=== PATIENT | female | born 2000 | race Caucasian/White ===

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

== ENCOUNTER 2021-04-20 16:31 | Emergency (ER) | payer OTHER, SELFPAY ==
[2021-04-20 16:40] VITALS: BP 132/72; PULSE 84; RESP 20; TEMP 36.3; O2SAT 100
--- NOTE | 2021-04-20 16:41 | ED.DENTAL ---
HPI - Dental/Oral General Chief complaint: Dental/Oral Stated complaint: tooth pain Source: patient and RN notes reviewed Mode of arrival: ambulatory Limitations: no limitations History of Present Illness HPI Narrative: 20-year-old female presents to the [facility] with complaints of dental pain to the right lower jaw for 2 weeks. Has dental caries. Had tried making an apt with [facility] but is not able to get in. Has taken Motrin with little relief. Teeth map: 1. redness and swelling with tenderness Related Data Allergies Allergy/AdvReac Type Severity Reaction Status Date / Time No Known Allergies Allergy Mild Verified 10/16/19 14:46 Review of Systems Review of Systems: All systems reviewed & are unremarkable except as noted in HPI and below Constitutional: Constitutional: Reports no additional constitutional complaints, Denies chills and Denies fever(s) Eyes: Eyes: Reports no additional eye complaints ENT: Reports as per HPI Comments: right lower dental pain Cardiovascular: Cardiovascular: Reports no additional cardiovascular complaints Respiratory: Respiratory: Reports no additional respiratory complaints Musculoskeletal: Musculoskeletal: Reports no additional musculoskeletal complaints Integumentary/Breasts: Skin/Breast: Reports system reviewed and no additional complaints, except as docu Neurologic: Reports system reviewed and no additional complaints, except as documented Psychiatric: Psychiatric: Reports no additional psychiatric complaints Allergic/Immunologic: Allergic/Immunologic: Reports no additional allergic/immunologic complaints PMFSH Surgical History Surgical History History of tonsillectomy Social History Social History Substance use: never Gender identity (if verbalized by the patient): Female Comments At the time of my signature, I reviewed and agree with the nursing past medical, surgical, social, and family history. There is no relevant family history pertinent to the patient complaint. Exam Const: General: healthy appearing and alert Nutritional Appearance: well nourished and obese Orientation/consciousness: patient oriented x3 Limitations: no limitations HENMT: Head: normal to inspection Ears: hearing grossly normal bilaterally General nose exam: Normal external nose present Face and sinus: normal facial exam, face symmetric, no ecchymosis and no erythema Mouth: Yes Normal oral and palatal mucosa present, Yes lip normal and Yes tongue normal Teeth and gingiva: abnormal tooth and associated gingiva lower right third molar and gingiva abnormal edematous, diffusely erythematous and tender Teeth image: 1. Caries noted 30 [id number], erythema and swelling noted to the gingiva surrounding tissue. Tenderness to palpation. Throat: posterior oropharynx normal Eyes: Conjunctivae: conjunctivae normal Pupils: Equal, round and reactive pupils present Neck: Neck: normal visual inspection, no lymphadenopathy and no meningeal signs Chest: Chest palpation & inspection: normal inspection of the chest Resp: Effort & Inspection: normal respiratory effort Cardio: Rate: regular rate Rhythm: regular rhythm Skin: General skin exam: normal color Rashes: no rashes Neuro: General: patient oriented x3, moves all extremities, no meningeal signs and no focal motor deficits Speech: normal speech Gait exam (Neuro): Normal gait present Extrem: General: normal to inspection Psych: Appearance: grossly normal Mental Status: mental status grossly normal Affect: normal affect Attitude: cooperative Thought content: Yes Normal thought content present Course Course Emergency Course: Discharge instructions reviewed with patient, as well as provided in writing per nursing staff. The instructions also include specific and strict return/GO TO THE ER as well as f/u information. All questions h
== END 2021-04-20 17:01 | disposition home or self-care (01) ==
PROVIDERS: Emergency Provider Nurse Practitioner
DX: K08.89 Other specified disorders of teeth and supporting structures (principal); K02.9 Dental caries, unspecified; K04.7 Periapical abscess without sinus
CPT/HCPCS: 99213; G0463

== ENCOUNTER 2023-05-24 14:34 | Emergency (ER) | payer OTHER, SELFPAY ==
[2023-05-24 14:53] VITALS: BP 133/86; PULSE 95; RESP 18; TEMP 36.6; O2SAT 100
[2023-05-24 14:56] VITALS: BP 133/86; PULSE 95; RESP 18; TEMP 36.6; O2SAT 100
--- NOTE | 2023-05-24 15:07 | ED.URI ---
HPI - URI/Sore Throat General Chief Complaint: Upper Respiratory Infection Stated Complaint: Sinus Source: patient and RN notes reviewed History of Present Illness HPI Narrative: 22-year-old female presents to urgent care with complaints of congestion, cough, sore throat when she coughs, and chest pain when she coughs that radiates to her back. Patient states this all started today. Patient states she felt fine yesterday and was visiting her mom in the hospital. Patient denies any fevers or chills. Patient reports some shortness of breath intermittently. Denies any vomiting or diarrhea. Patient states she took a DayQuil this morning without relief. Related Data Allergies Allergy/AdvReac Type Severity Reaction Status Date / Time No Known Allergies Allergy Mild Verified 05/24/23 14:55 Review of Systems Review of Systems: Pertinent positives and pertinent negatives per HPI. [facility] Surgical History Surgical History History of tonsillectomy Social History Social History Substance use: never Gender identity (if verbalized by the patient): Female Comments At the time of my signature, I reviewed and agree with the nursing past medical, surgical, social, and family history. There is no relevant family history pertinent to the patient complaint. Exam Narrative: GENERAL: This is a well-nourished, well-developed patient, in no apparent distress. HEAD: normocephalic, atraumatic. EYES: Sclera clear/white. Vision is grossly intact. EARS: External ears normal, auditory canals clear and without drainage, TMs normal without perforation. Hearing grossly intact. NOSE: congestion THROAT: Mucous membranes moist, posterior pharynx clear. NECK: Neck supple, non-tender without lymphadenopathy, masses or thyromegaly. CARDIOVASCULAR: Regular rate and rhythm without murmurs, gallops, or rubs. RESPIRATORY: Clear to auscultation. Breath sounds equal bilaterally. No wheezes, rales, or rhonchi. pt has dry cough in exam room. GASTROINTESTINAL: Abdomen soft, non-tender, nondistended. Bowel sounds are active. No hepato-splenomegaly, or palpable masses. No guarding. SKIN: warm, intact with no suspicious lesions or rash, good texture and turgor. NEURO: awake, alert, and oriented to person, place and time. There were no obvious focal neurologic abnormalities. Course Course Level of Care: Express Care Visit Vital Signs Vital signs: Vital Signs Temperature 98 F 05/24/23 14:53 Pulse Rate 95 05/24/23 14:53 Respiratory Rate 18 05/24/23 14:53 Blood Pressure 133/86 05/24/23 14:53 Pulse Oximetry 100 05/24/23 14:53 Oxygen Delivery Room Air 05/24/23 14:53 Temperature 98 F 05/24/23 14:56 Pulse Rate 95 05/24/23 14:56 Respiratory Rate 18 05/24/23 14:56 Blood Pressure 133/86 05/24/23 14:56 Pulse Oximetry 100 05/24/23 14:56 Oxygen Delivery Room Air 05/24/23 14:56 reviewed MDM - URI/Sore Throat MDM Narrative Medical decision making narrative: Take steroids as directed. May use the inhaler every 4-6 hours as needed for coughing. Increase fluids at home. Avoid any and all smoke. May use a humidifier in the bedroom. Increase your Vitamin C. Follow-up with personal physician in 2-5 days. Viral illness may last between 7-12days; antibiotic is NOT recommended at this time. Recommend antihistamine such as Benadryl at night time and Claritin/Zyrtec/Luz during the day. Increase your Vitamin C intake. Steam from hot showers help with congestion. Use inhaler as needed for cough, wheezing, shortness of breath or chest tightness. Also, recommend symptomatic treatment includes: rest, fluids, increase humidity of the air at home with a humidifier in the bedroom. Recommend Acetaminophen or nonsteroidal anti-inflammatory agents(NSAIDs) as directed in the bottle to reduce fever and/pain/headache. A
== END 2023-05-24 15:20 | disposition home or self-care (01) ==
PROVIDERS: Emergency Provider Nurse Practitioner Family
DX: J40 Bronchitis, not specified as acute or chronic (principal); J06.9 Acute upper respiratory infection, unspecified; J45.909 Unspecified asthma, uncomplicated
CPT/HCPCS: 99213; G0463

== ENCOUNTER 2024-05-22 12:50 | Emergency (ER) | payer OTHER, SELFPAY ==
[2024-05-22 13:00] VITALS: BP 137/79; PULSE 89; RESP 20; TEMP 36.7; O2SAT 98
--- NOTE | 2024-05-22 13:08 | ED.URI ---
HPI - URI/Sore Throat General Chief Complaint: Wound/Laceration Stated Complaint: Nose Irritation Time Seen by Provider: 05/22/24 13:13 Source: patient, RN notes reviewed and old records reviewed Mode of arrival: ambulatory Limitations: no limitations History of Present Illness HPI Narrative: Patient presents with complaints of large pustule to left side of her nose. She reports that she got the right side of her nose pierced a couple of days ago,had some bleeding complications during the procedure. She reports yesterday she noticed a red bump to the left side of the tip of her nose, today there is a large pustule. She reports extremely tender to the touch. She is also complaining about some left-sided facial swelling. Reports that she had a dental procedure 2 weeks ago, was taking cephalexin, finished course. Feels as though she is not all the way better from that. She denies all other injury and trauma. Denies fever, chills, sweats. Voices no other concerns or complaints at this time Related Data Allergies Allergy/AdvReac Type Severity Reaction Status Date / Time No Known Allergies Allergy Mild Verified 05/22/24 13:18 Review of Systems Review of Systems: All systems reviewed & are unremarkable except as noted in HPI and below Constitutional: Constitutional: Reports no additional constitutional complaints ENT: Reports system reviewed and no additional complaints, except as documented and Reports as per HPI Cardiovascular: Cardiovascular: Reports as per HPI and Reports no additional cardiovascular complaints Respiratory: Respiratory: Reports as per HPI and Reports no additional respiratory complaints Gastrointestinal: Gastrointestinal: Reports no additional gastrointestinal complaints Integumentary/Breasts: Skin/Breast: Reports system reviewed and no additional complaints, except as docu, Reports as per HPI and Reports new lesions [facility] Surgical History Surgical History History of tonsillectomy Social History Social History Substance use: never Gender identity (if verbalized by the patient): Female Comments At the time of my signature, I reviewed and agree with the nursing past medical, surgical, social, and family history. There is no relevant family history pertinent to the patient complaint. Exam Const: General: cooperative, no acute distress, alert and awake Orientation/consciousness: oriented to person, oriented to place and oriented to time HENMT: Head: normal to inspection Ears: TM's normal bilaterally Face/Nose/Sinus: Other nasal findings present (1 cm diameter pustule to tip of left nose) Nose image: 1. pustule Mouth: Yes moist mucous membranes Teeth and gingiva: fair dentition Throat: posterior oropharynx normal Resp: Effort & Inspection: normal respiratory effort and able to speak in complete sentences Auscultation: clear to auscultation bilaterally, no crackles, no rales, no rhonchi and no wheezes Cardio: Palpation: normal PMI Rate: regular rate Rhythm: regular rhythm Heart sounds: S1 normal heart sound present and S2 normal heart sound present Neuro: General: oriented to person, oriented to place and oriented to time Cranial nerves: Yes CN's II-XII intact bilaterally Psych: Appearance: grossly normal Thought process: Normal thought process present Insight: Good insight present (Psych) Judgement: Good judgement present (Psych) Course Course Level of Care: Express Care Visit Vital Signs Vital signs: Vital Signs Temperature 98.1 F 05/22/24 13:00 Pulse Rate 89 05/22/24 13:00 Respiratory Rate 20 05/22/24 13:00 Blood Pressure 137/79 05/22/24 13:00 Pulse Oximetry 98 05/22/24 13:00 Oxygen Delivery Room Air 05/22/24 13:00 Temperature 98.1 F 05/22/24 13:00 Pulse Rate 89 05/22/24 13:00 Respiratory Rate 20 05/22/24 13:00 Blood Pressur
== END 2024-05-22 13:27 | disposition home or self-care (01) ==
PROVIDERS: Emergency Provider Nurse Practitioner Family
DX: J34.0 Abscess, furuncle and carbuncle of nose (principal)
CPT/HCPCS: 99213; G0463

== ENCOUNTER 2024-06-09 23:01 | Observation (INO) | payer OTHER, SELFPAY ==
[2024-06-09 23:07] VITALS: BP 140/82; PULSE 102; RESP 15; TEMP 36.1; O2SAT 99
[2024-06-10] VITALS (14 sets, daily range): BP systolic 127–153; BP diastolic 62–115; PULSE 80–102; RESP 16–20; TEMP 36.9; O2SAT 96–100; BMI 50.4
--- NOTE | 2024-06-10 01:18 | ED.GENADULT ---
HPI - General Adult General Chief complaint: Syncope Stated complaint: syncopal episodes & falling asleep Time Seen by Provider: 06/10/24 00:52 History of Present Illness HPI narrative: Patient is a 23-year-old female who presents emergency department with chief complaint of pneumonia. Patient reports that she has been having syncopal episodes had several today ended up at [facility]. Patient was found to have pneumonia on a CT angiography of her chest and also was having episodes of desaturation both whenever she was falling asle she has not been feeling well ep and whenever she was talking. Patient reports no prior history of sleep apnea does report that Related Data Allergies Allergy/AdvReac Type Severity Reaction Status Date / Time No Known Allergies Allergy Mild Verified 06/09/24 23:14 Review of Systems Review of Systems: A 10 system review of systems was completed on the patient and is negative except for what is stated in the HPI. Nursing and ancillary documentation was reviewed. [facility] Surgical History Surgical History History of tonsillectomy Social History Social History Substance use: never Gender identity (if verbalized by the patient): Female Exam Narrative: GENERAL: Well-appearing, well-nourished, and in no acute distress. HEAD: Normocephalic, atraumatic. EYES: PERRLA and EOMI. ENT: Nares clear, no rhinorrhea or epistaxis. Mucous membranes moist. NECK: Supple. CHEST: Clear to auscultation. No respiratory distress. HEART: Regular rate and rhythm. No murmur heard. Normal peripheral pulses. ABDOMEN: Soft, nontender, nondistended, normal active bowel sounds. EXTREMITIES: Normal range of motion. No edema. SKIN: Warm, dry, no rash. NEURO: No focal deficits. Alert and oriented x3. PSYCH: Normal mood and affect. Course Vital Signs Vital signs: Vital Signs Temperature 36.1 C L 06/09/24 23:07 Pulse Rate 102 H 06/09/24 23:07 Respiratory Rate 15 06/09/24 23:07 Blood Pressure 140/82 06/09/24 23:07 Pulse Oximetry 99 06/09/24 23:07 Oxygen Delivery Room Air 06/09/24 23:07 Temperature 36.1 C L 06/09/24 23:07 Pulse Rate 95 06/10/24 00:48 Respiratory Rate 18 06/10/24 00:48 Blood Pressure 135/73 06/10/24 00:48 Pulse Oximetry 98 06/10/24 00:48 Oxygen Delivery Room Air 06/09/24 23:07 Medical Decision Making MDM Narrative Medical decision making narrative: Differential diagnosis includes pneumonia, sleep apnea, dysrhythmia The patient's records from [place] were reviewed. Patient will be continued on Rocephin and Zithromax case was discussed with the hospitalist for admission Vital Signs Vital Signs: Vital Signs Temperature 36.1 C L 06/09/24 23:07 Pulse Rate 102 H 06/09/24 23:07 Respiratory Rate 15 06/09/24 23:07 Blood Pressure 140/82 06/09/24 23:07 Pulse Oximetry 99 06/09/24 23:07 Oxygen Delivery Room Air 06/09/24 23:07 Temperature 36.1 C L 06/09/24 23:07 Pulse Rate 95 06/10/24 00:48 Respiratory Rate 18 06/10/24 00:48 Blood Pressure 135/73 06/10/24 00:48 Pulse Oximetry 98 06/10/24 00:48 Oxygen Delivery Room Air 06/09/24 23:07 Discharge Plan Discharge Clinical Impression: Syncope, Pneumonia Patient Disposition: Still a Patient Prescriptions: No Action clindamycin HCl 300 mg capsule 300 mg PO BID Qty: 20 0RF mupirocin 2 % ointment kit 1 applic topical BID 14 Days Qty: 1 0RF Follow-up/Referrals: PHYSICIAN,CHOCOLATE FINISHER OPERATOR [Primary Care Provider] - Time of Disposition: 01:30
[2024-06-10 01:53] LABS: Basophils Absolute Auto 0.1 K/mm3 (0.0-0.1); Basophils Percent Auto 0.9 % (0.2-1.2); Eosinophils Absolute Auto 0.2 K/mm3 (0-0.3); Eosinophils Percent Auto 1.5 % (0-4.4); Hematocrit 44.9 % (37.0-47.0); Hemoglobin 14.6 g/dL (12.0-15.0); Immature Granulocyte Absolute 0.07 K/mm3 (0.00-0.031); Immature Granulocyte Percent A 0.6 % (0-0.5); Lymphocytes Absolute Auto 4.16 K/mm3 (0.9-3.2); Lymphocytes Percent Auto 34.1 % (18.3-44.2); Mean Corpuscular HGB Conc 32.5 g/dl (32-36); Mean Corpuscular Hemoglobin 30.1 pg (26-34); Mean Corpuscular Volume 92.6 fl (80-100); Mean Platelet Volume 10.1 fl (7.4-10.4); Monocytes Absolute Auto 1.2 K/mm3 (0.1-0.6); Monocytes Percent Auto 9.7 % (2.6-8.5); Neutrophils Absolute Auto 6.5 K/mm3 (1.3-6.7); Neutrophils Percent Auto 53.2 % (45.5-73.1); Platelet Count Result 432 k/mm3 (150-375); Red Blood Count 4.85 M/mm3 (4.2-5.4); Red Cell Distribution Width 12.8 % (11.5-14.5); White Blood Count 12.2 K/mm3 (4.5-10.0)
[2024-06-10 02:02] LABS: Alanine Aminotransferase 19 U/L (6-35); Albumin Level 4.1 g/dL (3.5-5.1); Alkaline Phosphatase 49 U/L (38-126); Anion Gap 6 mmol/L (4-12); Aspartate Amino Transferase 24 U/L (14-36); Bilirubin,Total 0.3 mg/dL (0.2-1.3); Blood Urea Nitrogen 13 mg/dL (7-17); Carbon Dioxide 32 mmol/L (22-30); Chloride 102 mmol/L (98-107); Estimated CRCL calculation 137 ml/min; Estimated Glomerular Filt Rate > 60; Glucose 110 mg/dL (65-110); Potassium 3.5 mmol/L (3.4-5.0); Sodium 140 mmol/L (137-145)
[2024-06-10 02:03] LABS: Lactic Acid Reflex 1.1 mmol/L (0.7-2.0)
[2024-06-10 02:28] LABS: Influenza A QL RT-PCR Negative (Negative); Influenza B QL RT-PCR Negative (Negative); RSV RNA, RT-PCR Negative (Negative); SARS-CoV-2 RNA PCR Negative (Negative)
--- NOTE | 2024-06-10 02:29 | PCRCNOTE ---
Pt refused ABG. DR notified
--- NOTE | 2024-06-10 02:40 | PC.NURSE ---
Pt refused ABG. TARIQ Bonner notified. Not further instructions at this time.
--- NOTE | 2024-06-10 03:04 | PM.IMHP ---
H&P: HPI History of Present Illness Date/Time: 06/10/24 03:04 Chief Complaint: Syncope, cough, shortness breath Narrative: 23 years old lady with history of morbid obesity, BMI 44, transferred to ED because of syncope, cough and shortness breath. Patient has been feeling generally weak and just sitting today. Patient's nor in the night. Patient does not use CPAP and does not have sleeping study. Patient pass out when she was having a shower yesterday morning, patient has some lightheadedness before she passed out. Patient denies headache, focal weakness, confusion altered regained consciousness days. Patient has some cough and shortness breath in past few more days. Patient was brought to [facility], per patient's statement patient had syncope when patient was in hospital. EKG shows sinus rhythm, CT head shows no acute intracranial issues, patient found hypoxemia, CT chest showed right lower lobe pneumonia. Patient received at azithromycin ceftriaxone in the ED, and patient was transferred to [facility] for evaluation treatment. Upon arrival in the ED, patient found have tachycardia tachypnea, afebrile, no O2 desaturation on room air. EKG shows sinus rhythm, no specific ST or T-wave changes, flow and COVID negative, patient leukocytosis 12,200 Review of Systems Review of Systems: ROS negative except [facility] Surgical History History of tonsillectomy Social History Social History Substance use: never Gender identity (if verbalized by the patient): Female Meds Home Medications and Allergies Home Medications Medication Instructions Recorded Confirmed Type mupirocin 2 % ointment topical kit 1 applic topical BID 14 days #1 ea 05/22/24 Rx Allergies Allergy/AdvReac Type Severity Reaction Status Date / Time No Known Allergies Allergy Mild Verified 06/09/24 23:14 Vital Signs Vital Signs - 24 hr 06/09/24 23:07 06/10/24 00:48 06/10/24 00:48 Temperature 97.0 F L Pulse Rate 102 H 95 95 Respiratory Rate 15 18 Blood Pressure 140/82 135/73 Pulse Oximetry 99 98 Oxygen Delivery Room Air 06/10/24 01:55 Temperature Pulse Rate 95 Respiratory Rate 20 Blood Pressure 137/70 Pulse Oximetry 96 Oxygen Delivery Exam Narrative: GENERAL: Pleasant, in no acute distress. Morbid obesity - EYES: EOMI. Anicteric. - HENT: Moist mucous membranes. - LUNGS: Clear to auscultation bilaterally, no wheezing, rhonchi, or rales. - CARDIOVASCULAR: Regular rate and rhythm. No murmur. No JVD. - ABDOMEN: Soft, non-tender and non-distended. No palpable masses. - EXTREMITIES: No edema. Peripheral pulses 2+. Non-tender. - NEUROLOGIC: No focal neurological deficits. CN II-XII grossly intact. - PSYCHIATRIC: Awake, Alert and oriented x 3. Appropriate mood and affect. - SKIN: No rashes or lesions. Warm. - LYMPH: No cervical lymphadenopathy. H&P: Results Labs Labs: Short CBC 06/10/24 Range/Units 01:44 WBC 12.2 H (4.5-10.0) K/mm3 Hgb 14.6 (12.0-15.0) g/dL Hct 44.9 (37.0-47.0) % Plt Count 432 H (150-375) k/mm3 BMP 06/10/24 01:44 Sodium 140 Potassium 3.5 Chloride 102 Carbon Dioxide 32 H BUN 13 Creatinine 0.80 Glucose 110 Calcium 9.0 Liver Function 06/10/24 Range/Units 01:44 Total Bilirubin 0.3 (0.2-1.3) mg/dL AST 24 (14-36) U/L ALT 19 (6-35) U/L Alkaline Phosphatase 49 (38-126) U/L Albumin 4.1 (3.5-5.1) g/dL Assessment and Plan Assessment and plan (1) Syncope: Code(s): R55 - Syncope and collapse Status: Acute (2) Pneumonia: Code(s): J18.9 - Pneumonia, unspecified organism Status: Acute (3) Sepsis: Code(s): A41.9 - Sepsis, unspecified organism Status: Acute (4) Morbid obesity: Code(s): E66.01 - Morbid (severe) obesity due t
--- NOTE | 2024-06-10 03:16 | ECHO_ITS ---
Patient Info Name: Bria Good Age: 23 years : 2000 Gender: Female HR: 95 bpm BP: 137 / 70 mmHg Technical Quality: Fair Exam Date: 06/10/2024 9:54 AM Exam Location: Echo Lab Patient Status: Outpatient Admit Date: 06/10/2024 Staff Ordering Physician: Dominick Rodas MD Concrete Pump Operator Helper: Jonathan Robles RDCS Attending Provider: Tamara Woo PA-C Exam Type: CA echo doppler color flow Study Info Indications R55 - Syncope and collapse Complete two-dimensional, color flow and Doppler transthoracic echocardiogram is performed. Summary 1. Complete two-dimensional, color flow and Doppler transthoracic echocardiogram is performed. 2. Left ventricular chamber dimension is normal. 3. Left ventricular systolic function is normal, estimated at 60-65%. 4. The left ventricular diastolic function is normal. 5. E/e' 5 is not elevated. Left Ventricle E/e' 5 is not elevated. Left ventricular chamber dimension is normal. Left ventricular systolic function is normal, estimated at 60-65%. The left ventricular diastolic function is normal. Right Ventricle Right ventricular chamber dimension is normal. Right ventricular systolic function is normal. Left Atria Left atrial chamber dimension is normal. Right Atria Right atrial chamber dimension is normal. Aortic Valve The aortic valve is trileaflet. There is no aortic valve stenosis. There is no aortic valve regurgitation. Pulmonic Valve There is no pulmonic regurgitation. Mitral Valve There is no mitral valve stenosis. There is no mitral valve regurgitation. Tricuspid Valve There is no tricuspid valve regurgitation. Pericardium/Pleural There is no pericardial effusion. Inferior Vena Cava Normal inferior vena cava with >50% collapse upon inspiration consistent with normal right atrial pressure, 5 mmHg. Aorta The aortic root size at the sinus of Valsalva is normal. Left Ventricular Outflow Tract Name Value Normal LVOT 2D LVOT Diameter 2.0 cm LVOT Doppler LVOT Peak Gradient 6 mmHg LVOT Mean Gradient 3 mmHg LVOT VTI 21 cm LVOT VTI/AV VTI Ratio 1.0 LVOT Stroke Volume 67 ml LVOT CO 4.7 l/min Pulmonic Valve Name Value Normal PV Doppler PV Peak Gradient 4 mmHg Mitral Valve Name Value Normal MV Doppler MV Decel [place] 421 cm/s2 MV PHT 50 ms MV Area (PHT) 4.4 cm2 4.0-5.0 MV Diastolic Function
--- NOTE | 2024-06-10 03:18 | ADMGEN ---
This patient, Bria Good, was admitted to [facility] Surg Room 329-01. Patient/family oriented to hospital policies and general routines including ID bracelet, bed and alarms, visiting hours, pain management, procedures, bathroom and other care routines, personal items, smoking policy, room service/diet, and visiting hours. Information on how to activate the Rapid Response Team has been discussed. Patient/Family are encouraged to report perceived risks to care and to ask questions if they do not understand what they are told or what they should do.
[2024-06-10] MEDS: AZITHROMYCIN 500 MG/NS 250 ML 500 MG/250 ML BAG 250 MG IVPB (03:30)
--- NOTE | 2024-06-10 07:11 | PM.IMPN ---
Progress Note: A&P Assessment and Plan (1) Sepsis: Code(s): A41.9 - Sepsis, unspecified organism Status: Acute Assessment and Plan: Meets SIRS criteria: HR and leukocytosis - lactic acid: 1.1 - suspected source: pneumonia - blood cultures drawn on 06/10: pending - CXR outside facility: No cardiopulmonary process - Chest CTA outside facility: No PE. Lungs demonstrated focal areas of ground glass opacity largely in the right upper lobe and right lower lobe/peribronchial region suggesting infiltrates. (2) Pneumonia: Code(s): J18.9 - Pneumonia, unspecified organism Status: Acute Assessment and Plan: - CXR outside facility: No cardiopulmonary process - Chest CTA outside facility: No PE. Lungs demonstrated focal areas of ground glass opacity largely in the right upper lobe and right lower lobe/peribronchial region suggesting infiltrates. - started on CAP tx: Ceftriaxone and Azithromycin - Viral PCR: negative for Flu/COVID/RSV - no supplemental O2 requirement. 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 Recommend follow up with PCP for official sleep study. - Apnea link ordered - Echo: LVEF 60-65% - Follow-up orthostatic test - Telemetry monitoring - Neuro check (4) Morbid obesity: Code(s): E66.01 - Morbid (severe) obesity due to excess calories Status: Acute Assessment and Plan: BMI 50.4. - Encourage healthy lifestyle and eating habits Possible that patient has hypoventilation syndrome secondary to obesity. ABG w/ pO2 77.7 otherwise unremarkable Apnea link ordered for possible TREASURE Time Spent With Patient Time with patient: 25 - 35 minutes Subjective Date/time seen: 06/10/24 07:11 Interval history: 23 year old morbidly obese female presents to the hospital from [facility] for syncope, cough and shortness of breath. Patient is pleasant sitting up on her couch. She states that she is feeling better today but continues to endorse fatigue. She notes that she does snore and has been told that she will wake up gasping for air overnight. Will obtain an apnea link to evaluate. Patient denies chest pain, shortness of breath, nausea/vomiting and abdominal pain. Review of Systems Review of Systems: All systems reviewed & are unremarkable except as noted in HPI and below Exam Narrative: AF HR 91 RR 18 SPO2 97 BP 140/62 General: obese female in no acute respiratory distress who is nontoxic appearing, sitting up on her couch HEENT: Normocephalic. Atraumatic. Extraocular movement intact. Sclera clear and anicteric. No facial asymmetry. Chest: Lungs are clear to auscultation bilaterally. No wheezes or crackles. CV: Heart was regular rate and rhythm. S1-S2. No murmurs, gallops, or rubs. Abd: Abdomen was soft. Nontender. Nondistended. Positive bowel sounds. No organomegaly or masses. Ext: No clubbing, cyanosis, or edema. 2+ DP pulses bilaterally. Neuro: Patient is alert. Speech is clear. Patient is talking in full sentences. Objective Data Vital Signs Vital Signs: Vital Signs - 24 hr 06/09/24 23:07 06/10/24 00:48 06/10/24 00:48 Temperature 97.0 F L Pulse Rate 102 H 95 95 Respiratory Rate 15 18 Blood Pressure 140/82 135/73 Pulse Oximetry 99 98 Oxygen Delivery Room Air 06/10/24 01:55 06/10/24 06:00 06/10/24 04:00 Temperature 98.4 F Pulse Rate 95 91 93 Respiratory Rate 20 18 Blood Pressure 137/70 140/62 Pulse Oximetry 96 97 Oxygen Delivery Intake/Output Intake/Output: Intake & Output
[2024-06-10 12:13] LABS: Alveolar/Arterial O2 Gradient 26.8 mmHg; Base Excess ABG 0.1 mEq/l (+/-2.0); Fractional Inspired Oxygen 21 %; HCO3 ABG 24.2 mEq/l (22.0-26.0); Oxygen Content ABG 19.9 %vol (16.0-22.0); Oxygen Saturation ABG 95.8 % (95.0-100.0); Oxyhemoglobin 94.8 % THb (90.0-100.0); PCO2 ABG 37.8 mmHg (35.0-45.0); PO2 ABG 77.7 mmHg (80.0-100.0); Total Hemoglobin 14.9 g/dL (12.0-18.0); pH ABG 7.424 (7.350-7.450)
[2024-06-10 12:14] LABS: Device ROOM AIR; Modified Allen's Test Pass; Site Drawn LEFT RADIAL
[2024-06-10] MEDS: ENOXAPARIN 40 MG/0.4 ML SYRINGE SUB-Q (12:40)
[2024-06-10 18:17] LABS: Amphetamine Screen Urine Negative (Negative); Barbiturate Screen Urine Negative (Negative); Benzodiazepines Screen Urine Positive (Negative); Cannabinoid Screen Urine Positive (Negative); Cocaine Screen Urine Negative (Negative); Methadone Screen Urine Negative (Negative); Opiate Screen Urine Negative (Negative); Phencyclidine Screen Urine Negative (Negative)
[2024-06-11] VITALS: PULSE 96
[2024-06-11] MEDS: AZITHROMYCIN 500 MG/NS 250 ML 500 MG/250 ML BAG 250 MG IVPB (02:33)
[2024-06-11 04:00] VITALS: PULSE 90
[2024-06-11 05:15] VITALS: BP 133/83; PULSE 90; RESP 14; TEMP 36.1; O2SAT 100
[2024-06-11 06:10] LABS: Basophils Absolute Auto 0.1 K/mm3 (0.0-0.1); Basophils Percent Auto 0.8 % (0.2-1.2); Eosinophils Absolute Auto 0.2 K/mm3 (0-0.3); Eosinophils Percent Auto 1.7 % (0-4.4); Hematocrit 43.1 % (37.0-47.0); Immature Granulocyte Absolute 0.07 K/mm3 (0.00-0.031); Immature Granulocyte Percent A 0.6 % (0-0.5); Lymphocytes Absolute Auto 4.38 K/mm3 (0.9-3.2); Lymphocytes Percent Auto 38.1 % (18.3-44.2); Mean Corpuscular HGB Conc 32.5 g/dl (32-36); Mean Corpuscular Hemoglobin 30.3 pg (26-34); Mean Corpuscular Volume 93.3 fl (80-100); Mean Platelet Volume 10.2 fl (7.4-10.4); Monocytes Absolute Auto 1.1 K/mm3 (0.1-0.6); Monocytes Percent Auto 9.9 % (2.6-8.5); Neutrophils Absolute Auto 5.6 K/mm3 (1.3-6.7); Neutrophils Percent Auto 48.9 % (45.5-73.1); Platelet Count Result 379 k/mm3 (150-375); Red Blood Count 4.62 M/mm3 (4.2-5.4); Red Cell Distribution Width 12.7 % (11.5-14.5); White Blood Count 11.5 K/mm3 (4.5-10.0)
[2024-06-11 06:21] LABS: Alanine Aminotransferase 18 U/L (6-35); Albumin Level 3.8 g/dL (3.5-5.1); Alkaline Phosphatase 48 U/L (38-126); Anion Gap 4 mmol/L (4-12); Aspartate Amino Transferase 26 U/L (14-36); Bilirubin,Total 0.3 mg/dL (0.2-1.3); Blood Urea Nitrogen 13 mg/dL (7-17); Calcium 8.8 mg/dL (8.4-10.2); Carbon Dioxide 31 mmol/L (22-30); Chloride 104 mmol/L (98-107); Estimated CRCL calculation 148 ml/min; Estimated Glomerular Filt Rate > 60; Glucose 107 mg/dL (65-110); Sodium 139 mmol/L (137-145)
[2024-06-11 08:00] VITALS: PULSE 84
[2024-06-11] MEDS: ENOXAPARIN 40 MG/0.4 ML SYRINGE SUB-Q (08:36)
[2024-06-11 12:00] VITALS: PULSE 99
[2024-06-11 14:00] VITALS: BP 155/106; PULSE 93; RESP 18; TEMP 36.5; O2SAT 100
--- NOTE | 2024-06-11 14:28 | PM.DS ---
DS: Admitting Diagnosis Discharge Date 06/11/2024 Admitting Diagnosis Sepsis Pneumonia Syncope Morbid obesity DS: Discharge Diagnosis Discharge Diagnosis (1) Sepsis: Code(s): A41.9 - Sepsis, unspecified organism Status: Acute (2) Pneumonia: Code(s): J18.9 - Pneumonia, unspecified organism Status: Acute (3) Syncope: Code(s): R55 - Syncope and collapse Status: Acute (4) Morbid obesity: Code(s): E66.01 - Morbid (severe) obesity due to excess calories Status: Acute DS: Summary Hospital Course Reason for hospitalization: Sepsis Pneumonia Syncope Morbid obesity Hospital Course: 23 year old morbidly obese female presents to the hospital from [facility] for syncope, cough and shortness of breath. On admission to this hospital patient was meeting sepsis criteria with leukocytosis and heart rate. This resolved during admission. Reviewed reports from outside hospital. EKG showing normal sinus rhythm. Chest XR showed no cardiopulmonary process. Chest CTA showing no PE, but lungs demonstrated focal Areas of ground-glass opacity largely in the right upper lobe and right lower lobe /peribronchial region suggesting infiltrate. Viral panel negative. Patient was started on community-acquired pneumonia treatment. Course to be completed outpatient. Patient snores during the night with noted episodes of waking up gasping for air. Not on CPAP, patient felt tired and sleepy during the day. Due to patients BMI and symptoms concern that her syncopal episodes are likely more so related to sleep apnea and hypoventilation syndrome. An ABG was obtained and showed pO2 77.7 otherwise unremarkable. An apnea link was obtained and showed 121 obstructive apneas and patient having a sat < 88% for 15 minutes. Discussed with patient that she will need to obtain an official sleep study outpatient. She states understanding. Another possible cause of increased fatigue issues is patients UDS being positive for weed and benzos. Patient admits to smoking weed, but denies benzo use. Discussed with patient that drug cessation is encouraged. Prior to discharge patient denied chest pain, shortness of breath, nausea/vomiting and abdominal pain. She denied feeling fatigued and was no longer having episodes of falling asleep randomly. Patient discharged home in stable condition. She is to continue her antibiotics as prescribed and follow up with her PCP. Discussed with patient that she needs to have an official sleep study performed. Status at Discharge Functional status at discharge: independent ambulation Time Spent with Patient Time attestation: Total time spent providing and/or coordinating discharge services: Time spent: Greater than 30 minutes Exam Narrative: AF HR 90 RR 14 SpO2 100 BP 133/83 General: obese female in no acute respiratory distress who is nontoxic appearing, sitting up on her couch HEENT: Normocephalic. Atraumatic. Extraocular movement intact. Sclera clear and anicteric. No facial asymmetry. Chest: Lungs are clear to auscultation bilaterally. No wheezes or crackles. CV: Heart was regular rate and rhythm. S1-S2. No murmurs, gallops, or rubs. Abd: Abdomen was soft. Nontender. Nondistended. Positive bowel sounds. No organomegaly or masses. Ext: No clubbing, cyanosis, or edema. 2+ DP pulses bilaterally. Neuro: Patient is alert. Speech is clear. Patient is talking in full sentences. DS: Data Data Completed and Pending Labs on day of discharge: Labs from last 24 hours 06/11/24 06/10/24 05:57 17:54 WBC 11.5 H RBC 4.62 Hgb 14.0 Hct 43.1 MCV 93.3 MCH 30.3 MCHC 32.5 RDW 12.7 Plt Count 379 H MPV 10.2 Immature Gran % (Auto) 0.6 H Neut % (Auto) 48.9 Lymph % (Auto) 38.1 Spink % (Auto) 9.9 H Eos % (Auto) 1.7 Baso % (Auto) 0.8 Lymph # (Auto) 4.38 H Spink # (Auto) 1.1 H Eos # (Auto) 0.2 Baso # (Auto) 0.1 Abs Immat Gran (auto) 0.07 H Absolute Neuts
== END 2024-06-11 15:10 | disposition home or self-care (01) ==
LOC: ANHED 06-10 01:32 → ANH3MEDSUR 06-10 06:48
PROVIDERS: Admitting Provider Hospitalist; Emergency Provider Emergency Medicine; Visit Provider Student in an Organized Health Care Education/Training Program
DX: A41.9 Sepsis, unspecified organism (principal); J18.9 Pneumonia, unspecified organism; R09.02 Hypoxemia; R55 Syncope and collapse; E66.01 Morbid (severe) obesity due to excess calories; Z68.43 Body mass index [BMI] 50.0-59.9, adult; Z20.822 Contact with and (suspected) exposure to COVID-19
CPT/HCPCS: 36415; 36600; 80053; 80307; 82805; 83605; 85018; 85025; 87040; 87637; 93306; 96365; 96368; 96372; 96374; 96375; 99285; G0378; J0456; J0696; J1650